=== PATIENT | female | born 1985 | race Caucasian/White ===

== ENCOUNTER 2017-01-12 10:58 | Inpatient (IN) | payer OTHER ==
[2017-01-12] MEDS ORDERED: OXYTOCIN 10 UNITS/ML VIAL ONE (11:31)
[2017-01-12] MEDS ORDERED: IV START KIT ONE (11:31)
[2017-01-12] MEDS ORDERED: PUMP TUBING ONE (11:31)
[2017-01-12] MEDS ORDERED: LACTATED RINGERS 0 ML ONE (11:31)
[2017-01-12] MEDS ORDERED: LIDOCAINE 1% (PRES FREE) 30 ML VIAL ONE (11:31)
[2017-01-12] MEDS ORDERED: SODIUM CHLORIDE 0.9% FLUSH 30 ML ONE (11:31)
[2017-01-12] MEDS ORDERED: MINERAL OIL 25 ML BOT ONE (11:31)
[2017-01-12] MEDS ORDERED: LIDOCAINE Viscous 2% 15 ML UDCUP ONE (11:31)
[2017-01-12] MEDS ORDERED: OXYTOCIN IN LR 500 ML IV ONE ×2 (11:31→11:44)
[2017-01-12 12:00] LABS: HEMATOCRIT 45.4 % (37.0-47.0); HEMOGLOBIN 15.4 gm/l (12.0-16.0); MEAN CELL VOLUME 90.3 fl (81.0-99.0); MEAN CORPUSCULAR HEMOGLOBIN 30.6 pg (27.0-31.0); MEAN CORPUSCULAR HGB CONC 33.9 g/dl (33.0-37.0); RED CELL DISTRIBUTION WIDTH 13.1 % (11.5-14.5)
--- NOTE | 2017-01-12 12:01 | PCMAN ---
OB Admission Note - History : 2 Term: 1 Livin EDC:: 01/06/17 Gestational Age (weeks): 40 Admit Cervical Dilation:: 10 Admit Cervical Effacement (%):: 100 Admit Station:: -2 Admit Presentaton:: vertex Membrane Status: Bulging Rupture (Date): 01/12/17 Rupture (Time): 11:40 Labor Onset (Date): 01/12/17 Contractions: Yes Status:: category 1 tracing - Labs Blood Type: A (+) positive Rubella Status: Non-immune GBS Status: Negative Abnormal Labs: None (wants , consent signed)
[2017-01-12 12:03] VITALS: BMI 38.7
[2017-01-12] MEDS ORDERED: MINERAL OIL 25 ML BOT TP ONE (12:37)
[2017-01-12] MEDS ORDERED: LIDOCAINE 1% (PRES FREE) 30 ML VIAL IF ONE (12:37)
--- NOTE | 2017-01-12 13:55 | PCMDEL ---
Delivery Note - Delivery Delivery (Date): 01/12/17 Delivery (Time): 13:30 Gender: Male Presentation: Cephalic Position: OA Operative Delivery:: Forceps Umbilical Cord: 3 Vessel Delayed Cord Clamping:: < 1 min Placenta:: spontaneos and complete EBL:: 350ml Perineum:: midline episiotomy and partial 3rd degree Suture:: 2-0 vicryl on 3rd, 2-0 chromic on epis Comments:: forceps due to lack of descent, very edematous vulva
[2017-01-12] MEDS ORDERED: MEASLES,MUMPS&RUBELLA VACCINE 0.5 ML VIAL SUB-Q V ONE (14:02)
[2017-01-12] MEDS ORDERED: HYDROCODONE/ACETAMINOPHEN 5/325MG TABLET PO PRN (14:02)
[2017-01-12] MEDS ORDERED: DIPHTH,PERTUSS(ACELL),TET VAC 0.5 ML VIAL IM V ONE (14:02)
[2017-01-12] MEDS ORDERED: LANOLIN 50 APPLIC/7G TUBE TP PRN (14:02)
[2017-01-12] MEDS: BENZOCAINE/MENTHOL 60 APPLIC/BOT TP PRN (14:53)
[2017-01-12] MEDS: IBUPROFEN 600 MG TABLET PO SCH ×2 (14:53→20:40)
[2017-01-13] MEDS: IBUPROFEN 600 MG TABLET PO SCH ×2 (02:35→09:17)
[2017-01-13 06:54] LABS: HEMATOCRIT 36.3 % (37.0-47.0)
[2017-01-13] MEDS ORDERED: DOCUSATE SODIUM 100 MG CAPSULE PO SCH (09:00)
[2017-01-13] MEDS: BENZOCAINE/MENTHOL 60 APPLIC/BOT TP PRN (09:16)
--- NOTE | 2017-01-13 09:22 | PDOC44 ---
- Subjective Day: 1 Reports Pain Tolerable, Reports , Reports Lochia Light, Reports Tolerating Regular Diet - Objective Temp Pulse Resp BP Pulse Ox 98.0 F 82 16 100/59 01/13/17 07:45 01/13/17 07:45 01/13/17 07:45 01/13/17 07:45 Lab Results 01/13/17 01/12/17 06:05 11:40 WBC 11.0 H RBC 5.03 Hgb 12.0 D 15.4 Hct 36.3 L 45.4 Plt Count 144 Current Medications Generic Name Dose Route Start Last Admin Trade Name Freq PRN Reason Stop Dose Admin Acetaminophen/Hydrocodone Bitart 1 - 2 tab 01/12/17 14:02 Kirklin 5/325 PO Q4H PRN Pain (Moderate) Benzocaine/Menthol 1 applic 01/12/17 14:02 01/13/17 09:16 Dermoplast TP 1 bot PRN PRN Administration Patient Comfort Docusate Sodium 100 mg 01/13/17 09:00 01/13/17 09:17 Colace PO 100 mg DAILY SIERRA Administration Emollient Ointment 1 applic 01/12/17 14:02 [id number] TP PRN PRN sore nipples Ibuprofen 600 mg 01/12/17 14:02 01/13/17 09:17 Motrin PO 600 mg Q6H SIERRA Administration Sodium Chloride 10 ml 01/12/17 14:02 Normal Saline 10ml Flush IV PRN PRN IV Flush - Physical Exam General: Afebrile Psych/Mental Status: Mood/Affect Appropriate Breast: Soft Fundus: Firm Abdomen: Normal Bowel Sounds Genitourinary: Normal Female Genitalia Disposition: Stable, Anticipate DC Home Tomorrow
[2017-01-13 14:06] VITALS: BP 127/74
== END 2017-01-13 15:25 | disposition home or self-care (01) | DRG 775 ==
LOC: FBC 10:58 → FBCOUT 10:58 → FBC 11:34 → FBCOUT 11:34
PROVIDERS: ADMIT Obstetrics & Gynecology; ATTEND Obstetrics & Gynecology
PROC: 10D07Z8 Extraction of Products of Conception, Other, Via Natural or Artificial Opening (ICD-10-PCS; principal; 2017-01-12)
PROC: 0DQR0ZZ Repair Anal Sphincter, Open Approach (ICD-10-PCS; 2017-01-12)
PROC: 0W8NXZZ Division of Female Perineum, External Approach (ICD-10-PCS; 2017-01-12)
DX: O34.219 Maternal care for unspecified type scar from previous cesarean delivery (principal); O70.20 Third degree perineal laceration during delivery, unspecified; O64.8XX0 Obstructed labor due to other malposition and malpresentation, not applicable or unspecified; N85.8 Other specified noninflammatory disorders of uterus; O99.89 Other specified diseases and conditions complicating pregnancy, childbirth and the puerperium; Z3A.40 40 weeks gestation of pregnancy; Z37.0 Single live birth